=== PATIENT | male | born 1950 | race Caucasian/White ===

== ENCOUNTER 2017-04-17 08:00 | Day surgery (SDC) | payer MEDICARE ==
[~2017-04-17] VITALS: Ht 180.3 cm; Wt 97.5 kg
[~2017-04-17 08:00] MED LIST: ACETAMINOPHEN-1 EAC1 PO; DELTASONE20 MG PO; NORCO 5-325 TA1 EACH PO; VITAMIN D32000 UNI1 PO; ZANAFLEX4 MG PO
== END 2017-04-17 10:00 | disposition home or self-care (01) ==
LOC: OPS 08:00 → DS 08:00 → OPS 09:00 → DS 09:00 → OPS 10:00
PROVIDERS: Ophthalmology
PROC: 08RJ3JZ Replacement of Right Lens with Synthetic Substitute, Percutaneous Approach (ICD-10-PCS; principal; 2017-04-17 09:00)
DX: H25.11 Age-related nuclear cataract, right eye (principal); H40.222 Chronic angle-closure glaucoma, left eye; M54.9 Dorsalgia, unspecified; Z85.46 Personal history of malignant neoplasm of prostate; Z98.890 Other specified postprocedural states; Z79.899 Other long term (current) drug therapy
CPT/HCPCS: J2250

== ENCOUNTER 2021-03-07 08:16 | Day surgery (SDC) | payer MEDICARE ==
--- NOTE | ~2021-03-07 | OR ---
[facility] [address], [place] [address] Draft DATE OF OPERATION: 03/07/2021 SURGEON: Bailey Holman MD PREOPERATIVE DIAGNOSIS: Colon screening. POSTOPERATIVE DIAGNOSIS: Normal colon to cecum. PROCEDURE: Total colonoscopy to cecum. ANESTHESIA: Intravenous sedation, fentanyl 100 mcg and Versed 5 mg. INDICATION: This 71-year-old white man is a patient of Claudine Kovacs and last underwent colonoscopy in 2007. Colonoscopy was normal. He has no family history of colon cancer, remains free of symptoms, having no bleeding, diarrhea, or constipation. He is admitted to undergo screening colonoscopy. He understands the risks of bleeding, infection, and perforation. FINDINGS: The prep was good. Complete colonoscopy was undertaken of the cecum without question. He had no findings of concern. DESCRIPTION OF PROCEDURE: The patient was brought to the endoscopy suite and placed in the lateral decubitus position, given intravenous sedation to the point of slurred speech and nystagmus. Digital rectal examination was normal. An Olympus video colonoscope was passed in the rectum and manipulated throughout the colon ultimately intubating the cecum itself. The ileocecal valve and appendiceal orifice were normal. The scope was withdrawn from that point. Examination throughout showed no sign of abnormality, specifically no polyps, diverticular formation, colitis, or cancer. Retroflexed view was normal as well. The scope was removed and the patient was taken to the recovery room in good condition. CONCLUDING DIAGNOSIS: PATIENT NAME: RAMANA HUNTLEY OPERATIVE REPORT DATE OF : 50 REPORT #: [id number] PHYSICIAN: BAILEY HOLMAN MD PCP: CLAUDINE KOVACS PAC REPORT IS CONFIDENTIAL AND NOT TO BE RELEASED WITHOUT AUTHORIZATION [address] [place] [address] Draft Normal colon to cecum. PLAN: Recommend repeat colonoscopy in 10 years, sooner if clinically indicated. MD RONAN Chen/PRABHU /[id number] cc: MAURO Jenkins Copies: ~ PATIENT NAME: RAMANA HUNTLEY OPERATIVE REPORT DATE OF : 50 REPORT #: [id number] PHYSICIAN: BAILEY HOLMAN MD PCP: CLAUDINE KOVACS PAC REPORT IS CONFIDENTIAL AND NOT TO BE RELEASED WITHOUT AUTHORIZATION
--- NOTE | 2021-03-07 10:58 | NUR ---
03/07/21 1058 Varsha Andrade 1018 PT ARRIVED IN PACU SLEEPY WITH NO C/O'S. ABD SOFT AND PASSING FLATUS. 1030 PT SITTING UP IN BED TALKING WITH ALL QUESTIONS ANSWERED. 1045 DRINKING GRAPE JUICE. DC INSTRUCTIONS GIVEN. 1055 LEFT VIA W/C.
== END 2021-03-07 10:55 | disposition home or self-care (01) ==
LOC: DS 08:16 → OPS 08:16 → DS 09:30 → OPS 10:55 → DS 14:00
PROVIDERS: ATTEND Surgery
PROC: 0DJD8ZZ Inspection of Lower Intestinal Tract, Via Natural or Artificial Opening Endoscopic (ICD-10-PCS; principal; 2021-03-07 09:30)
DX: Z12.11 Encounter for screening for malignant neoplasm of colon (principal); Z85.46 Personal history of malignant neoplasm of prostate; Z98.890 Other specified postprocedural states
CPT/HCPCS: J2250; J3010

== ENCOUNTER 2022-01-01 11:17 | Emergency (ER) | payer MEDICARE ==
[~2022-01-01] VITALS: Ht 180.3 cm; Wt 88.5 kg
[2022-01-01] MEDS ORDERED: ONDANSETRON ODT8 MG PO (13:55)
[2022-01-01] MEDS ORDERED: HYDROCODON-ACE1 EA11 PO (13:55)
== END 2022-01-01 14:06 | disposition home or self-care (01) ==
LOC: ED 11:17
DX: N20.0 Calculus of kidney (principal); N28.1 Cyst of kidney, acquired
CPT/HCPCS: 36415; 74176; 80053; 81003; 85025; 96374; 96375; 99284-25; J1885; J2405

== ENCOUNTER 2022-01-24 10:17 | Emergency (ER) | payer MEDICARE ==
[~2022-01-24] VITALS: Ht 180.3 cm; Wt 88.5 kg
[~2022-01-24 10:17] MED LIST changes: +HYDROCODON-ACE1 EA11 PO; +ONDANSETRON ODT8 MG PO
--- OUTSIDE RECORDS SUMMARY | 2022-01-24 10:20 | XMS ---
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 EBrittney VISIT COUNT (12 MO.) 2 [place] [facility] TOTAL 2 NOTE: Visits indicate total known visits. ED/UCC VISIT TRACKING (12 MO.) 01/24/2022 10:18 [facility] [place] TYPE: Emergency COMPLAINT: - BACK PAIN/INJURY 01/01/2022 11:17 [facility] [place] TYPE: Emergency COMPLAINT: - R FLANK PAIN, NAUSEA DIAGNOSES: - Unspecified abdominal pain - Calculus of kidney - Cyst of kidney, acquired INPATIENT VISIT TRACKING (12 MO.) No inpatient visits to display in this time frame [id number]
[2022-01-24] MEDS ORDERED: LIDODERM1 EACH TOP (13:22)
[2022-01-24] MEDS ORDERED: HYDROCODON-ACE1 EA14 PO (13:22)
== END 2022-01-24 14:56 | disposition home or self-care (01) ==
LOC: ED 10:17
DX: S39.012A Strain of muscle, fascia and tendon of lower back, initial encounter (principal); S90.02XA Contusion of left ankle, initial encounter; G62.9 Polyneuropathy, unspecified; W18.30XA Fall on same level, unspecified, initial encounter
CPT/HCPCS: 72131; 73610; 73630; 99284-25